=== PATIENT | female | born 1960 ===

== ENCOUNTER 2021-07-25 12:29 | Emergency (ER) | payer MEDICAID ==
[~2021-07-25] VITALS: Ht 157.5 cm; Wt 113.6 kg
[~2021-07-25 12:29] MED LIST: HUMALOG100 U/ML SQ; LANTUS100 U/ML SQ; NOVOLOG 100U100 U/M1 SQ; TRULICITY0.75 MG/0. SQ
[2021-07-25 12:54] VITALS: TEMP 98
[2021-07-25 13:24] LABS: BASO # 0.1 K/mm3 (0.0-0.2); BASO % 0.5 % (0.0-2.0); EOS # 0.1 K/mm3 (0.0-0.7); EOS % 1.5 % (0.0-4.0); GRAN # 6.3 K/mm3 (1.4-6.5); GRAN % 66.1 % (42.2-75.2); HEMATOCRIT 41.7 % (37.0-47.0); HEMOGLOBIN 13.6 g/dl (12.5-16.0); LYMPH # 2.5 K/mm3 (1.2-3.4); LYMPH % 25.9 % (20.0-51.0); MEAN CELL VOLUME 84 fl (80.0-100.0); MEAN CORPUSCULAR HEMOGLOBIN 27 pg (27-31); MEAN CORPUSCULAR HGB CONC 33 g/dl (33.0-37.0); MEAN PLATELET VOLUME 10.7 fl (7.4-10.4); MONO # 0.6 K/mm3 (0.1-0.6); MONO % 5.8 % (1.7-9.3); PLATELET COUNT 351 K/mm3 (130-400); RED BLOOD COUNT 4.97 M/mm3 (4.10-5.30); REDCELL DISTRIBUTION WIDTH-CV 13.4 % (11.5-14.5)
[2021-07-25 13:37] LABS: ALANINE AMINOTRANSFERASE 9 U/L (0-55); ALBUMIN 3.6 gm/dL (3.5-5.0); ALKALINE PHOSPHATASE 97 U/L (40-150); ANION GAP 12 mmol/L (7-16); AST,SGOT 13 U/L (5-34); BILIRUBIN,TOTAL 0.3 mg/dL (0.2-1.2); BLOOD UREA NITROGEN 13 mg/dL (10-20); CALCIUM 8.8 mg/dL (8.4-10.2); CARBON DIOXIDE 21 mmol/L (22-29); CHLORIDE 104 mmol/L (98-107); CREATININE, serum 0.99 mg/dL (0.57-1.11); GLUCOSE 387 mg/dL (70-99); POTASSIUM 4.3 mmol/L (3.5-4.5); SODIUM 137 mmol/L (136-145); TOTAL PROTEIN 7.4 gm/dL (6.2-8.1)
[2021-07-25 13:43] LABS: TROPONIN-I < 0.010 ng/mL (0.00-0.033)
[2021-07-25 14:29] VITALS: BP 144/66; PULSE 83
== END 2021-07-25 14:30 | disposition home or self-care (01) ==
LOC: COL.ER 12:29
PROVIDERS: Emergency Medicine
DX: R05.1 Acute cough (principal); R06.02 Shortness of breath; R73.9 Hyperglycemia, unspecified; Z87.891 Personal history of nicotine dependence; Z28.310 Unvaccinated for COVID-19

== ENCOUNTER 2023-09-27 11:07 | Inpatient (IN) | payer MEDICAID ==
[~2023-09-27] VITALS: Ht 132.1 cm; Wt 100.4 kg
[2023-09-27] VITALS (18 sets, daily range): BP systolic 90–134; BP diastolic 47–84; PULSE 52–80; TEMP 97.7–98.2
[2023-09-27] MEDS ORDERED: Heparin/D5W 250 ML IV SCH ×2 (11:45→12:45)
[2023-09-27] MEDS ORDERED: Heparin 5,000 UNITS/ML 1 ML VIAL IV ONE (11:45)
[2023-09-27] MEDS ORDERED: Heparin 5,000 UNITS/ML 1 ML VIAL IV PRN ×2 (11:45→12:45)
[2023-09-27] MEDS ORDERED: dilTIAZem 25 MG/5 ML VIAL IV ONE (11:45)
[2023-09-27 11:51] LABS: BASO # 0.1 K/mm3 (0.0-0.2); BASO % 0.5 % (0.0-2.0); EOS # 0.1 K/mm3 (0.0-0.7); EOS % 1.4 % (0.0-4.0); GRAN # 5.3 K/mm3 (1.4-6.5); GRAN % 52.8 % (42.2-75.2); HEMATOCRIT 43.4 % (37.0-47.0); HEMOGLOBIN 14.1 g/dl (12.5-16.0); LYMPH % 39.4 % (20.0-51.0); MEAN CELL VOLUME 86 fl (80.0-100.0); MEAN CORPUSCULAR HEMOGLOBIN 28 pg (27-31); MEAN CORPUSCULAR HGB CONC 33 g/dl (33.0-37.0); MEAN PLATELET VOLUME 10.2 fl (7.4-10.4); MONO # 0.6 K/mm3 (0.1-0.6); MONO % 5.6 % (1.7-9.3); PLATELET COUNT 323 K/mm3 (130-400); RED BLOOD COUNT 5.04 M/mm3 (4.10-5.30); REDCELL DISTRIBUTION WIDTH-CV 13.5 % (11.5-14.5)
[2023-09-27 11:58] LABS: PROTHROMBIN TIME 11.3 SECONDS (9.7-12.8)
[2023-09-27 12:01] LABS: PARTIAL THROMBOPLASTIN TIME 28.9 SECONDS (26.0-37.0)
[2023-09-27 12:15] LABS: ALANINE AMINOTRANSFERASE 12 U/L (0-55); ALBUMIN 3.7 g/dL (3.4-4.8); ALKALINE PHOSPHATASE 84 U/L (40-150); ANION GAP 11 mmol/L (7-16); AST,SGOT 16 U/L (5-34); BILIRUBIN,TOTAL 0.3 mg/dL (0.2-1.2); BLOOD UREA NITROGEN 5 mg/dL (10-20); CHLORIDE 106 mEq/L (98-107); CREATININE, serum 0.84 mg/dL (0.57-1.11); GLUCOSE 192 mg/dL (70-99); MAGNESIUM 2.1 mg/dL (1.6-2.6); POTASSIUM 3.9 mEq/L (3.5-4.5); SODIUM 141 mEq/L (136-145)
[2023-09-27 12:23] LABS: TROPONIN-I < 0.010 ng/mL (0.00-0.033)
[2023-09-27] MEDS ORDERED: Amiodarone 450 MG in D5W Excel 250 ML IV SCH ×4 (12:31→18:53)
[2023-09-27] MEDS ORDERED: Acetaminophen 325 MG TAB PO PRN (12:45)
[2023-09-27] MEDS ORDERED: Polyethylene Glycol 3350 17 GM PDS PO PRN (12:45)
[2023-09-27] MEDS ORDERED: Docusate Sodium 100 MG CAP PO PRN (12:45)
[2023-09-27] MEDS ORDERED: Ondansetron 4 MG/2 ML VIAL IV PRN (12:45)
--- NOTE | 2023-09-27 14:06 | NUR ---
Pt arrived to medical floor from ED by bed. OSIEL Swanson at bedside from ED. Admission assessment and intake completed. Home medications, allergies, and pharmacy reviewed. VSS. Amiodarone infusing into RAC as ordered with no complications. Heparin infusing into LFA with no complications as ordered. Telelmetry in place. Irregular heart rate heard upon auscultation. Dr. Madrigal at bedside communicating with pt. Pt is maldivian speaking only and interpretor used at this time. Oriented pt to room, call light, and bathroom. Pt denies pain at this time rating 0/10. Pt has no request at this time. Call light within reach.
[2023-09-27] MEDS ORDERED: LEVEMIR100 U/ML SQ (14:31)
[2023-09-27] MEDS ORDERED: OZEMPIC1 MG/0.71 SQ (14:32)
[2023-09-27] MEDS ORDERED: NORVASC 10MG10 MG PO (14:34)
[2023-09-27] MEDS ORDERED: PRINIVIL10 MG PO (14:34)
[2023-09-27] MEDS ORDERED: CRESTOR 10MG10 MG PO (14:35)
[2023-09-27] MEDS ORDERED: OZEMPIC0.25 MG/02 SQ (15:07)
[2023-09-27] MEDS ORDERED: Insulin Lispro (HumaLOG) SQ SCH (17:00)
--- NOTE | 2023-09-27 17:04 | NUR ---
ROBERTO for blood sugars check ACHS and DC Q6hr checks per Dr. Camilo.
--- NOTE | 2023-09-27 18:33 | NUR ---
This nurse called JEMIMA Shultz to give update regarding pt. ELECTRIC SCOOP OPERATOR gave verbal order to D/C Heparin gtt and start PO Eliquis 5 mg BID starting at 2100. Order read back and confirmed by ELECTRIC SCOOP OPERATOR. Amiodarone gtt to continue per protocol per ELECTRIC SCOOP OPERATOR.
--- NOTE | 2023-09-27 18:45 | NUR ---
Amiodarone rate verfied with RN Pilar and matches emar per protocol.
[2023-09-27] MEDS ORDERED: Dextrose 50% Water 25 GM/50 ML SYRINGE IV PRN (19:00)
[2023-09-27] MEDS ORDERED: Glucagon 1 MG VIAL IM PRN (19:00)
[2023-09-27] MEDS ORDERED: Dextrose (Glucose) 15 GM (4 x 3.75 GM) Chewable TABLET PACK PO PRN (19:00)
[2023-09-27] MEDS ORDERED: Apixaban 5 MG TABLET PO SCH (21:00)
[2023-09-27] MEDS ORDERED: Atorvastatin 10 MG TAB PO SCH (21:00)
--- NOTE | 2023-09-27 21:28 | NUR ---
PATIENT IS RESTING IN BED AND REPORTS FEELING SOME PALPITATIONS AND SOME CHEST TIGHTNESS BUT NO CHEST PAIN. DENIES ANY SHORTNESS OF BREATH OR DIZZINESS. AMIODARONE DRIP IS INFUSING AT 17.3 ML/HR. CALL LIGHT IS WITHIN REACH. BED IS LOCKED AND IN LOW POSITION.
[2023-09-28] MEDS ORDERED: Apixaban 5 MG TABLET PO SCH
[2023-09-28] MEDS ORDERED: Amiodarone 200 MG TAB PO SCH
[2023-09-28 00:42] VITALS: BP_SYST 103
[2023-09-28 03:47] VITALS: BP 118/63; PULSE 60; TEMP 97.7
[2023-09-28 04:40] VITALS: BP_SYST 118
[2023-09-28 06:39] LABS: BASO % 0.3 % (0.0-2.0); EOS # 0.1 K/mm3 (0.0-0.7); EOS % 1.6 % (0.0-4.0); GRAN # 4.5 K/mm3 (1.4-6.5); GRAN % 51.1 % (42.2-75.2); HEMATOCRIT 40.7 % (37.0-47.0); HEMOGLOBIN 13.3 g/dl (12.5-16.0); LYMPH # 3.6 K/mm3 (1.2-3.4); LYMPH % 40.9 % (20.0-51.0); MEAN CELL VOLUME 86 fl (80.0-100.0); MEAN CORPUSCULAR HEMOGLOBIN 28 pg (27-31); MEAN CORPUSCULAR HGB CONC 33 g/dl (33.0-37.0); MEAN PLATELET VOLUME 10.8 fl (7.4-10.4); MONO # 0.5 K/mm3 (0.1-0.6); MONO % 5.9 % (1.7-9.3); PLATELET COUNT 293 K/mm3 (130-400); RED BLOOD COUNT 4.73 M/mm3 (4.10-5.30); REDCELL DISTRIBUTION WIDTH-CV 13.5 % (11.5-14.5)
[2023-09-28 06:57] LABS: CALCIUM 8.5 mg/dL (8.4-10.2); CREATININE, serum 0.88 mg/dL (0.57-1.11); POTASSIUM 3.9 mEq/L (3.5-4.5)
[2023-09-28 07:16] VITALS: BP 129/82; PULSE 65; TEMP 97.9
[2023-09-28 08:55] VITALS: BP_SYST 129
--- NOTE | 2023-09-28 08:55 | NUR ---
PT LAYING IN BED UPON ENTERING. ASSESSMENT DONE, MEDS GIVEN PER ORDER. AMIODARONE RUNNING IN RIGHT AC AT 17.3 MLS/HR PER ORDER. PT REPORTS CHEST PALPITATIONS BUT STATES THAT ITS AN IMPROVEMENT. INT TO LEFT FOREARM PATENT. PT DENIES NEEDS. BED IN LOWEST POSITION, CALL LIGHT IN REACH
[2023-09-28] MEDS ORDERED: Pantoprazole 40 MG in NS 10 ML IV SCH (09:00)
[2023-09-28] MEDS ORDERED: Lisinopril 10 MG TAB PO SCH (09:00)
[2023-09-28] MEDS ORDERED: Insulin Glargine-ygfn (Lantus) SQ SCH (09:00)
[2023-09-28] MEDS ORDERED: ELIQUIS 5MG PO (09:34)
[2023-09-28] MEDS ORDERED: ASPIRIN E.C. 8181 MG PO (09:34)
[2023-09-28] MEDS ORDERED: PACERONE200 MG PO (09:39)
--- NOTE | 2023-09-28 10:25 | NUR ---
[employer] worker met with pt to discuss discharge planning. Pt understood converation in Persian and declined the swimming pool serviceperson. Pt reports to live with her , Yifan Morales in [place]. She sees Dr. Causey for PCP needs and obtains medications from [facility] or [facility] on [address] with some difficulties. SW discussed coupons, samples, and Eliquis card with pt. She expressed some frustration with the PCP switching her medications 3 times and SW advised that hopefully it would allow for it to be more affordable. Pt verbalized understanding and SW advised RN Keven was working on the Eliquis card with pharmacy. Pt reports to be independent with ADLS and uses a cane for DME. She does not have a DPOA-HC and is fine with her being NOK when discussed. Pt anticipates discharge here shortly, her is coming. Discharge Plan: home
--- NOTE | 2023-09-28 10:52 | NUR ---
IVS AND TELE REMOVED. PT GIVEN DISCHARGE INSTRUCTIONS, UNABLE TO PRINT IN [place], AND VERBALIZED UNDERSTANDING. DISCHARGE EDUCATION GIVEN IN [place]. ALL FAMILY QUESTIONS ANSWERED. SERA CALLED AND THIS NURSE TOLD THAT PRESCRIPTION CARD WITH BE GIVEN AND MEDICATIONS TO HOLD PT OVER HOLIDAYS. PT DRESSED IN PERSONAL CLOTHES AND WAITING AT THIS TIME.
== END 2023-09-28 11:58 | disposition home or self-care (01) | DRG 310 ==
LOC: COL.ER 11:07 → MEDICAL 12:40
PROVIDERS: Family Medicine; ADMIT Internal Medicine
DX: I48.91 Unspecified atrial fibrillation (principal); E11.9 Type 2 diabetes mellitus without complications; Z79.4 Long term (current) use of insulin; K59.00 Constipation, unspecified; E78.41 Elevated Lipoprotein(a); I10 Essential (primary) hypertension
CPT/HCPCS: J0282; J1644; J1815; J2470; J7060

== ENCOUNTER 2023-09-29 05:45 | Emergency (ER) | payer MEDICAID ==
[~2023-09-29] VITALS: Ht 157.5 cm; Wt 122.7 kg
[~2023-09-29 05:45] MED LIST changes: +ASPIRIN E.C. 8181 MG PO; +CRESTOR 10MG10 MG PO; +ELIQUIS 5MG PO; +LEVEMIR100 U/ML SQ; +NORVASC 10MG10 MG PO; +OZEMPIC0.25 MG/02 SQ; +OZEMPIC1 MG/0.71 SQ; +PACERONE200 MG PO; +PRINIVIL10 MG PO
[2023-09-29 05:47] VITALS: TEMP 97.7
[2023-09-29] MEDS ORDERED: Magnesium Sulfate 4% 50 ML IV ONE (06:00)
[2023-09-29] MEDS ORDERED: dilTIAZem 25 MG/5 ML VIAL IV ONE ×3 (06:00→07:00)
[2023-09-29] MEDS ORDERED: LR 1,000 ML IV ONE (06:00)
[2023-09-29 06:27] LABS: BASO % 0.3 % (0.0-2.0); EOS # 0.1 K/mm3 (0.0-0.7); GRAN # 7.1 K/mm3 (1.4-6.5); GRAN % 56.2 % (42.2-75.2); HEMATOCRIT 43.6 % (37.0-47.0); HEMOGLOBIN 14.1 g/dl (12.5-16.0); LYMPH # 4.5 K/mm3 (1.2-3.4); LYMPH % 35.3 % (20.0-51.0); MEAN CELL VOLUME 85 fl (80.0-100.0); MEAN CORPUSCULAR HEMOGLOBIN 27 pg (27-31); MEAN CORPUSCULAR HGB CONC 32 g/dl (33.0-37.0); MEAN PLATELET VOLUME 10.7 fl (7.4-10.4); MONO # 0.9 K/mm3 (0.1-0.6); MONO % 6.9 % (1.7-9.3); PLATELET COUNT 324 K/mm3 (130-400); RED BLOOD COUNT 5.15 M/mm3 (4.10-5.30); REDCELL DISTRIBUTION WIDTH-CV 13.5 % (11.5-14.5)
[2023-09-29 06:41] LABS: INR 1.2 (0.8-3.0); PROTHROMBIN TIME 12.7 SECONDS (9.7-12.8)
[2023-09-29 06:44] LABS: PARTIAL THROMBOPLASTIN TIME 29.4 SECONDS (26.0-37.0)
[2023-09-29] MEDS ORDERED: Etomidate 20 MG/10 ML VIAL IV ONE (07:28)
[2023-09-29 07:37] LABS: ALBUMIN 3.5 g/dL (3.4-4.8); BILIRUBIN,TOTAL 0.6 mg/dL (0.2-1.2); CALCIUM 9.1 mg/dL (8.4-10.2); CREATININE, serum 0.98 mg/dL (0.57-1.11); POTASSIUM 4.5 mEq/L (3.5-4.5); TOTAL PROTEIN 7.7 g/dl (6.2-8.1)
[2023-09-29 07:43] LABS: TROPONIN-I 0.011 ng/mL (0.00-0.033)
[2023-09-29] MEDS ORDERED: Atorvastatin 20 MG TAB PO SCH (08:13)
[2023-09-29] MEDS ORDERED: Acetaminophen 325 MG TAB PO PRN (08:15)
[2023-09-29] MEDS ORDERED: Docusate Sodium 100 MG CAP PO PRN (08:15)
[2023-09-29] MEDS ORDERED: Polyethylene Glycol 3350 17 GM PDS PO PRN (08:15)
[2023-09-29] MEDS ORDERED: Amiodarone 200 MG TAB PO SCH (08:15)
[2023-09-29] MEDS ORDERED: Ondansetron 4 MG/2 ML VIAL IV PRN ×2 (08:15→09:30)
[2023-09-29] MEDS ORDERED: Amiodarone 450 MG in D5W Excel 250 ML IV SCH ×2 (08:37→14:37)
[2023-09-29] MEDS ORDERED: Insulin Glargine-ygfn (Lantus) SQ SCH (09:00)
[2023-09-29] MEDS ORDERED: Lisinopril 10 MG TAB PO SCH (09:00)
[2023-09-29] MEDS ORDERED: Apixaban 5 MG TABLET PO SCH (09:00)
[2023-09-29 09:39] VITALS: BP 106/83; PULSE 163
== END 2023-09-29 10:50 | disposition short-term general hospital (02) ==
LOC: COL.ER 05:45
PROVIDERS: Emergency Medicine
DX: I48.91 Unspecified atrial fibrillation (principal); I95.9 Hypotension, unspecified; I10 Essential (primary) hypertension; Z79.899 Other long term (current) drug therapy
CPT/HCPCS: J0282; J3475; J7060; J7120